=== PATIENT | female | born 1945 | race Caucasian/White ===

== ENCOUNTER → 2017-02-02 | Outpatient (CLI) | payer MEDICARE, OTHER | LOC: WI 12:56 | PROVIDERS: ATTEND Family Medicine | DX: Z12.31 Encounter for screening mammogram for malignant neoplasm of breast (principal) | CPT/HCPCS: 77067; G0202 ==

== ENCOUNTER → 2018-02-03 | Outpatient (CLI) | payer MEDICARE, OTHER ==
--- NOTE | 2018-02-03 10:28 | WOMENS IMAGING REPORT ---
EXAM DESCRIPTION: BILAT SCREENING MAMMO W/CAD COMPLETED DATE/TIME: 02/03/2018 10:03 am REASON FOR STUDY: ROUTINE SCREENING;Z12.31 Z12.31 ENCNTR SCREEN MAMMOGRAM FOR MALIGNANT NEOPLASM OF ROBIN COMPARISON: 02/02/2017 and 11/11/2015. TECHNIQUE: Standard craniocaudal and mediolateral oblique views of each breast recorded using digita l acquisition. LIMITATIONS: None. FINDINGS: RIGHT BREAST MASSES: No suspicious masses. CALCIFICATIONS: No new or suspicious calcifications. ARCHITECTURAL DISTORTION: None. DEVELOPING DENSITY: None. ASYMMETRY: None noted. OTHER: No other significant findings. LEFT BREAST MASSES: No suspicious masses. CALCIFICATIONS: Increasing calcifications in the central breast, 9 cm from the nipple, located anteri or to the biopsy clip. ARCHITECTURAL DISTORTION: None. DEVELOPING DENSITY: None. ASYMMETRY: None noted. OTHER: No other significant findings. Read with the assistance of CAD. .[facility] - R2 Cenova Version 1.3 .[facility] - R2 Cenova Version 1.3 .[facility] - R2 Cenova Version 2.4 .[facility] - R2 Cenova Version 2.4 .[facility] - R2 Cook Candy Version 9.2 IMPRESSION: Increasing calcifications in the central left breast. Stable mammographic appearance of the right breast. BREAST DENSITY: b. There are scattered areas of fibroglandular density. BIRAD: 0 Incomplete: Needs Additional Imaging Evaluation and/or prior Mammograms for Comparison. RECOMMENDATION: RECOMMENDED FOLLOW-UP: Recommend additional evaluation with magnification views of t he left breast. Recommend routine screening mammography of the right breast. The patient will be contacted for additional imaging. COMMENT: The patient has been notified of the results by letter per SA requirements. Additional no tification policies are in place for contacting patient with suspicious or incomplete findings. Quality ID #[id number]: The [employer] recommends an annual screening mammogram for women aged 40 years or over. This facility utilizes a reminder system to ensure that all patients receive reminder letters, and/or direct phone calls for appointments. This includes reminders for routine scr eening mammograms, diagnostic mammograms, or other Breast Imaging Interventions when appropriate. Th is patient will be placed in the appropriate reminder system. The [employer] (ACR) has developed recommendations for screening MRI of the breast s in certain patient populations, to be used in conjunction with mammography. Breast MRI surveillanc e may be appropriate for women with more than 20% lifetime risk of developing breast cancer as deter mined by genetic testing, significant family history of the disease, or history of mantle radiation f or Hodgkins Disease. ACR Practice Guidelines 2008. TECHNICAL DOCUMENTATION: FINDING NUMBER: (1) ASSESSMENT: (1) JOB ID: [id number] [employer]- All Rights Reserved Reading location - IP/workstation name: [facility]
== END ==
LOC: WI 09:17
PROVIDERS: ATTEND Family Medicine
DX: Z12.31 Encounter for screening mammogram for malignant neoplasm of breast (principal)
CPT/HCPCS: 77067

== ENCOUNTER → 2018-02-14 | Outpatient (CLI) | payer MEDICARE, OTHER ==
--- NOTE | 2018-02-14 09:41 | WOMENS IMAGING REPORT ---
EXAM DESCRIPTION: LEFT DIAGNOSTIC MAMMO W/CAD COMPLETED DATE/TIME: 02/14/2018 8:46 am REASON FOR STUDY: CALCIFICATIONS; R92.0 R92.0 MAMMOGRAPHIC MICROCALCIFICATION FOUND ON DX IMAGING O F COMPARISON: 02/03/2018 TECHNIQUE: True lateral and magnification views. LIMITATIONS: None. FINDINGS: BREAST: left MASSES: No suspicious masses. CALCIFICATIONS: Microcalcifications in the approximate 6 o'clock position about 8.8 cm deep to the ni pple have some pleomorphic features and no definite benign features. ARCHITECTURAL DISTORTION: None. DEVELOPING DENSITY: None. ASYMMETRY: None noted. OTHER: No other significant findings. IMPRESSION: Indeterminate calcifications. BREAST DENSITY: b. There are scattered areas of fibroglandular density. BIRAD: 4 Suspicious. Biopsy should be considered. RECOMMENDATION: RECOMMENDED FOLLOW UP: Birads 4: Biopsy should be performed in the absence of clinic al contraindication. SPECIFIC INTERVENTION/IMAGING/CONSULTATION RECOMMENDED:The suspicious finding(s) amenable to stereo-t actic-guided vacuum assisted core biopsy. COMMUNICATION:The imaging findings were not discussed with the patient. Her referring provider has be en notified of the findings. COMMENT: The patient has been notified of the results by letter per SA requirements. Additional no tification policies are in place for contacting patient with suspicious or incomplete findings. Quality ID #[id number]: The [employer] recommends an annual screening mammogram for women aged 40 years or over. This facility utilizes a reminder system to ensure that all patients receive reminder letters, and/or direct phone calls for appointments. This includes reminders for routine scr eening mammograms, diagnostic mammograms, or other Breast Imaging Interventions when appropriate. Th is patient will be placed in the appropriate reminder system. The [employer] (ACR) has developed recommendations for screening MRI of the breast s in certain patient populations, to be used in conjunction with mammography. Breast MRI surveillanc e may be appropriate for women with more than 20% lifetime risk of developing breast cancer as deter mined by genetic testing, significant family history of the disease, or history of mantle radiation f or Hodgkins Disease. ACR Practice Guidelines 2008. TECHNICAL DOCUMENTATION: FINDING NUMBER: (1) ASSESSMENT: (1) JOB ID: [id number] [employer]- All Rights Reserved Reading location - IP/workstation name: [email or web address] [id number]
== END ==
LOC: WI 08:25
PROVIDERS: ATTEND Family Medicine
DX: R92.0 Mammographic microcalcification found on diagnostic imaging of breast (principal)

== ENCOUNTER → 2018-03-03 | Day surgery (SDC) | payer MEDICARE, OTHER ==
[~2018-03-03] MED LIST: LIDOCAINE 1%/EPINEPHRINE INJ 20 ML VIAL ONE
--- NOTE | 2018-03-07 17:02 | RADIOLOGY REPORT (SQ) ---
EXAM DESCRIPTION: STEREO BREAST BX; LEFT DIG DX MAMMO NO CHG COMPLETED DATE/TIME: 03/03/2018 10:25 am REASON FOR STUDY: MICROCALCS (R92.0); LEFT BREAST BX CLIP PLACEMENT R92.0 MAMMOGRAPHIC MICROCALCIFI CATION FOUND ON DX IMAGING OF COMPARISON: Multiple previous TECHNIQUE: Vacuum-assisted stereotactic-guided biopsy of the calcifications in the 6 o'clock positio n left breast. Serial progress stereotactic and single digital images acquired. PROCEDURE: The procedure was discussed with the patient, including possible complications such as bleeding, infection, nondiagnostic sample or possible findings such as atypical ductal hyperplasia wh ich would require additional surgery. Possible clip placement was explained. The patient agreed t o the procedure. The patient was placed prone on the stereotactic table. The lesion in the breast was localized ster eotactically. The skin of the breast was prepped in sterile fashion. Superficial and deep local an esthesia was provided. A small incision was made in the skin and the biopsy probe was advanced to t he target. Using the vacuum-assisted core biopsy device, multiple core specimens were obtained. Continuous low dose infusion of local anesthesia was used during the procedure. A specimen radiograph was obtained. The radiograph demonstrated calcifications of concern in the bio psy tissue. Using odgrzdoz-lb-jspsmizb technique a pellet clip was deployed at the biopsy site. Mammographic image confirmed presence of the clip. The probe was then removed and hemostasis obtained with manua l compression. A compression bandage was applied. Postoperative instructions were explained to th e patient. POST-PROCEDURE TWO VIEW DIGITAL MAMMOGRAM: An additional two view mammogram was recorded in the [facility] mammographic suite. Marker clip is present at the biopsy site. LIMITATIONS: None. FINDINGS: PATHOLOGY: Sclerosing fibroadenoma with microcalcifications, benign. CONCORDANT: Yes. POST PROCEDURE MAMMOGRAMS FOR MARKER PLACEMENT: Yes IMPRESSION: SUCCESSFUL STEREOTACTIC-GUIDED BIOPSY OF THE LESION IN THE LEFT BREAST. BIOPSY RESULTS ARE CONCORDANT WITH IMAGING FINDINGS. CALCIFICATIONS RELATED TO SCLEROSING FIBROADENOMA. NO ATYPIA OR MALIGNANCY. BI-RADS 2, BENIGN FINDINGS FOLLOW-UP: Patient can resume bilateral screening mammography and January 2019. Please consider katharina ateral screening tomosynthesis NOTIFICATION: THE PATIENT HAS BEEN PERSONALLY NOTIFIED OF THE RESULTS BY THE BREAST INTERVENTIONAL TE AM. Patient notified, 1600 hours 03/07/2018. She understands this is a benign diagnosis and she can retur n to screening. COMMENT: Patient medication list reviewed: Yes- Quality ID# [id number]:Eligible professional attests to doc umenting in the medical record they obtained, updated, or reviewed the patient's current medications. TECHNICAL DOCUMENTATION: JOB ID: [id number] [employer]- All Rights Reserved Reading location - IP/workstation name: [email or web address]
== END ==
LOC: RAD 08:18
PROVIDERS: ATTEND Family Medicine
PROC: 0HBU3ZX Excision of Left Breast, Percutaneous Approach, Diagnostic (ICD-10-PCS; principal; 2018-03-03)
DX: R92.0 Mammographic microcalcification found on diagnostic imaging of breast (principal); D24.2 Benign neoplasm of left breast
CPT/HCPCS: 88305 ×2; 19081; J3490

== ENCOUNTER → 2018-03-10 | Outpatient (CLI) | payer MEDICARE, OTHER ==
--- NOTE | 2018-03-10 16:28 | RADIOLOGY REPORT (SQ) ---
EXAM DESCRIPTION: FOOT LEFT COMPLETE COMPLETED DATE/TIME: 03/10/2018 3:43 pm REASON FOR STUDY: PAIN IN LEFT FOOT M79.672 PAIN IN LEFT FOOT COMPARISON: None. NUMBER OF VIEWS: Three views. TECHNIQUE: AP, lateral and oblique without weight bearing radiographic images acquired of the left f oot. LIMITATIONS: None. FINDINGS: MINERALIZATION: Normal. BONES: No acute fracture or dislocation. No worrisome bone lesions. Calcaneal spur. Osteophytes in t he tarsal metatarsal joint of the 1st toe. JOINTS: No erosions. No jarrett-articular osteopenia. No chondrocalcinosis. SOFT TISSUES: No swelling. No calcifications. OTHER: No other significant finding. IMPRESSION: DEGENERATIVE CHANGES. HEEL SPUR. NO ACUTE FINDINGS. TECHNICAL DOCUMENTATION: JOB ID: [id number] [employer]- All Rights Reserved Reading location - IP/workstation name: [email or web address]
== END ==
LOC: OD 15:21
PROVIDERS: ATTEND Family Medicine
DX: M79.672 Pain in left foot (principal)

== ENCOUNTER → 2018-06-06 | Outpatient (CLI) | payer MEDICARE, OTHER ==
[2018-06-06 17:54] LABS: ABSOLUTE LYMPHOCYTES (AUTO) 0.8 10^3/uL (0.5-4.7); ABSOLUTE MONOCYTES (AUTO) 0.5 10^3/uL (0.1-1.4); ABSOLUTE NEUT (AUTO) 3.2 10^3/uL (1.7-8.2); BASOPHILS % (AUTO) 0.5 % (0-2); EOSINOPHILS % (AUTO) 0.9 % (0-6); HEMATOCRIT 42.3 % (36.0-47.0); HEMOGLOBIN 14.4 g/dL (12.0-15.5); LYMPHOCYTES % (AUTO) 18.5 % (13-45); MEAN CORPUSCULAR HEMOGLOBIN 31.9 pg (27.0-33.4); MEAN CORPUSCULAR HGB CONC 34.1 g/dL (32.0-36.0); MEAN CORPUSCULAR VOLUME 94 fl (80-97); MONOCYTES % (AUTO) 10.5 % (3-13); PLATELET COUNT 270 10^3/uL (150-450); RED BLOOD COUNT 4.51 10^6/uL (3.72-5.28); RED CELL DISTRIBUTION WIDTH 13.6 % (11.5-14.0); SEGMENTED NEUTROPHILS % (AUTO) 69.6 % (42-78); TOTAL CELLS COUNTED % (AUTO) 100 %; WHITE BLOOD COUNT 4.6 10^3/uL (4.0-10.5)
[2018-06-06 18:19] LABS: ANION GAP 12 (5-19); BLOOD UREA NITROGEN 16 mg/dL (7-20); CALCIUM 9.4 mg/dL (8.4-10.2); CARBON DIOXIDE 29 mmol/L (22-30); CHLORIDE 103 mmol/L (98-107); GLUCOSE 94 mg/dL (75-110); POTASSIUM 4.3 mmol/L (3.6-5.0); SODIUM 144.3 mmol/L (137-145)
--- NOTE | 2018-06-06 19:26 | EKG REPORT ---
SEVERITY:- ABNORMAL ECG - SINUS RHYTHM RIGHT BUNDLE BRANCH BLOCK : Confirmed by: Cindy Crouch 06-Jun-2018 19:24:50
== END ==
LOC: OD 16:42
PROVIDERS: ATTEND Family Medicine
DX: Z01.818 Encounter for other preprocedural examination (principal); M20.42 Other hammer toe(s) (acquired), left foot; M24.575 Contracture, left foot
CPT/HCPCS: 36415; 80048; 85025; 87070; 93005; 93010

== ENCOUNTER → 2018-10-20 | Outpatient (CLI) | payer MEDICARE, OTHER ==
--- NOTE | 2018-10-20 12:48 | RADIOLOGY REPORT (SQ) ---
EXAM DESCRIPTION: LUMBAR SPINE COMPLETE COMPLETED DATE/TIME: 10/20/2018 12:25 pm REASON FOR STUDY: LBP M54.5 LOW BACK PAIN M54.9 DORSALGIA, UNSPECIFIED COMPARISON: None. NUMBER OF VIEWS: Five views including obliques. TECHNIQUE: AP, lateral, oblique, and sacral radiographic images acquired of the lumbar spine. LIMITATIONS: None. FINDINGS: MINERALIZATION: Normal. SEGMENTATION: Normal. No transitional anatomy. ALIGNMENT: Normal. VERTEBRAE: Maintained height. No fracture or worrisome bone lesion. DISCS: Mild disc space narrowing with osteophytes. POSTERIOR ELEMENTS: Pedicles and facets are intact. No pars defect or posterior arch defects. Facet arthropathy is present. HARDWARE: None in the spine. PARASPINAL SOFT TISSUES: Normal. PELVIS: Intact as visualized. No fractures or worrisome bone lesions. SI joints intact. OTHER: No other significant finding. IMPRESSION: SPONDYLOSIS WITHOUT BONE LESION OR FRACTURE. TECHNICAL DOCUMENTATION: JOB ID: [id number] [employer]- All Rights Reserved Reading location - IP/workstation name: [facility]
--- NOTE | 2018-10-20 12:48 | RADIOLOGY REPORT (SQ) ---
EXAM DESCRIPTION: T SPINE AP/LAT COMPLETED DATE/TIME: 10/20/2018 12:25 pm REASON FOR STUDY: MID BACK PAIN;LOW BACK PAIN M54.5 LOW BACK PAIN M54.9 DORSALGIA, UNSPECIFIED COMPARISON: None. NUMBER OF VIEWS: Two views. TECHNIQUE: AP and lateral radiographic images acquired of the thoracic spine. LIMITATIONS: None. FINDINGS: MINERALIZATION: Normal. ALIGNMENT: Normal. No scoliosis. VERTEBRAE: No fracture or bone lesion. Maintained height, normal segmentation. DISCS: Multilevel disc space narrowing with osteophytes. HARDWARE: None in the spine. MEDIASTINUM AND SOFT TISSUES: Normal heart size and aortic contour. No soft tissue abnormality. VISUALIZED LUNG PELAEZ: Clear. OTHER: No other significant finding. IMPRESSION: SPONDYLOSIS WITHOUT BONE LESION OR FRACTURE. TECHNICAL DOCUMENTATION: JOB ID: [id number] [employer]- All Rights Reserved Reading location - IP/workstation name: [email or web address]
== END ==
LOC: OD 12:05
PROVIDERS: ATTEND Nurse Practitioner Acute Care
DX: M54.5 Low back pain (principal)
CPT/HCPCS: 72070; 72110

== ENCOUNTER → 2019-02-06 | Outpatient (CLI) | payer MEDICARE, OTHER ==
--- NOTE | 2019-02-06 14:42 | WOMENS IMAGING REPORT ---
EXAM DESCRIPTION: BILAT SCREENING MAMMO W/CAD COMPLETED DATE/TIME: 02/06/2019 1:26 pm REASON FOR STUDY: Z12.31 ROUTINE BILATERAL SCREENING Z12.31 ENCNTR SCREEN MAMMOGRAM FOR MALIGNANT N EOPLASM OF ROBIN COMPARISON: [id number] TECHNIQUE: Standard craniocaudal and mediolateral oblique views of each breast recorded using Ahandyhanda l acquisition. LIMITATIONS: None. FINDINGS: Findings present which are benign by mammographic criteria. No suspicious masses, calcifi cations or architectural distortion. Pertinent benign findings: Biopsy clip left breast. Read with the assistance of CAD. .[facility] - R2 Cenova Version 1.3 .[facility] - R2 Cenova Version 2.1 .[facility] - R2 Cenova Version 2.4 .[facility] - R2 Cenova Version 2.4 .[facility] - R2 [employer] Version 9.2 Benign mammographic findings may include one or more of the following: Smooth masses, popcorn/rim/co arse calcifications, asymmetries, post-procedure changes, and lesions with long-standing stability. IMPRESSION: BENIGN MAMMOGRAPHIC FINDINGS. BIRADS 2 BREAST DENSITY: b. There are scattered areas of fibroglandular density. BIRAD: 2 BENIGN FINDING(S) RECOMMENDATION: ROUTINE SCREENING COMMENT: The patient has been notified of the results by letter per SA requirements. Additional no tification policies are in place for contacting patient with suspicious or incomplete findings. Quality ID #[id number]: The [employer] recommends an annual screening mammogram for women aged 40 years or over. This facility utilizes a reminder system to ensure that all patients receive reminder letters, and/or direct phone calls for appointments. This includes reminders for routine scr eening mammograms, diagnostic mammograms, or other Breast Imaging Interventions when appropriate. Th is patient will be placed in the appropriate reminder system. The [employer] (ACR) has developed recommendations for screening MRI of the breast s in certain patient populations, to be used in conjunction with mammography. Breast MRI surveillanc e may be appropriate for women with more than 20% lifetime risk of developing breast cancer as deter mined by genetic testing, significant family history of the disease, or history of mantle radiation f or Hodgkins Disease. ACR Practice Guidelines 2008. TECHNICAL DOCUMENTATION: FINDING NUMBER: (1) ASSESSMENT: (1) JOB ID: [id number] [employer]- All Rights Reserved Reading location - IP/workstation name: [email or web address]
== END ==
LOC: WI 13:09
PROVIDERS: ATTEND Family Medicine
DX: Z12.31 Encounter for screening mammogram for malignant neoplasm of breast (principal)
CPT/HCPCS: 77067

== ENCOUNTER → 2019-08-22 | Outpatient (CLI) | payer MEDICARE, OTHER ==
--- NOTE | 2019-08-22 13:39 | RADIOLOGY REPORT (SQ) ---
EXAM DESCRIPTION: HIP LEFT AP/LATERAL COMPLETED DATE/TIME: 08/22/2019 10:33 am REASON FOR STUDY: LEFT HIP PAIN M25.552 PAIN IN LEFT HIP COMPARISON: None. NUMBER OF VIEWS: Two views. TECHNIQUE: AP pelvis and additional frog-leg view of the left hip. LIMITATIONS: None. FINDINGS: MINERALIZATION: Normal. LEFT HIP: No fracture or dislocation. Mild osteophyte formation and subchondral sclerosis at the sup erolateral aspect of the acetabulum. RIGHT HIP: No fracture or dislocation. PUBIS AND ISCHIUM: No fracture. PELVIS: No fracture. SACRUM: Intact. LOWER LUMBAR SPINE: Degenerative facet arthropathy and spondylosis at L4-5 and L5-S1. SOFT TISSUES: No findings. OTHER: No other finding. IMPRESSION: 1. No acute fracture or dislocation of the left hip. 2. Mild left femoroacetabular joint osteoarthrosis. TECHNICAL DOCUMENTATION: JOB ID: [id number] [employer]- All Rights Reserved Reading location - IP/workstation name: [email or web address]
== END ==
LOC: OD 10:23
PROVIDERS: ATTEND Family Medicine
DX: M25.552 Pain in left hip (principal)